=== PATIENT | female | born 1945 | race Hispanic/Latino ===

== ENCOUNTER → 2018-03-23 | Outpatient (CLI) | payer MEDICARE ==
[~2018-03-23] MED LIST: BENA40TA9 PO; CARV25TA PO; FURO40TA7 PO; METF-444 PO; PROG100C6 PO; REGADENOSON 0.4 MG/5 ML PF SYG IVP SCH; RIVA20TA PO; ROSU5TAB11 PO; SPIR25TA6 PO; VENL75TA63 PO
== END | disposition home or self-care (01) ==
LOC: SHCH 07:45
PROVIDERS: ATTEND Internal Medicine Cardiovascular Disease
DX: R07.9 Chest pain, unspecified (principal)
CPT/HCPCS: 78452; 93017; 96374; A9500 ×2; J2785